=== PATIENT | female | born 1955 | race Caucasian/White ===

== ENCOUNTER 2016-04-12 00:36 | Emergency (ER) | payer MEDICARE ==
[~2016-04-12] VITALS: Ht 172.7 cm; Wt 90.0 kg
[~2016-04-12 00:36] MED LIST: AMITRIPTYLINE H75 M1 PO; AMOXICILLIN 8751 TAB PO; ASPIRIN E.C. 8181 MG PO; CELEXA 20MG20 MG/TAB PO; GLUCOPHAGE850 MG/TAB PO; MOTRIN 800800 MG/TAB PO; NORCO 325 MG-7.1 TAB PO; PRAVACHOL 40MG40 MG PO; PRINIVIL10 MG PO; TEGRETOL X200 MG/TA1 PO; TRIAMCINOLONE A15 G1 TP
[2016-04-12 00:40] VITALS: BP 127/74; PULSE 91; TEMP 97.4
[2016-04-12] MEDS ORDERED: PRAVACHOL 40MG40 MG PO (01:17)
[2016-04-12] MEDS ORDERED: CELEXA 20MG20 MG/TAB PO (01:17)
[2016-04-12] MEDS ORDERED: FISH OIL 1000MG1 CAP PO (01:17)
[2016-04-12] MEDS ORDERED: PRINIVIL10 MG PO (01:17)
[2016-04-12] MEDS ORDERED: EPITOL (01:18)
[2016-04-12] MEDS ORDERED: GLUCOPHAGE850 MG/TAB PO (01:18)
[2016-04-12] MEDS ORDERED: BUSPAR10 MG PO (01:18)
[2016-04-12] MEDS ORDERED: AMITRIPTYLINE H75 M1 PO (01:19)
== END 2016-04-12 02:10 | disposition home or self-care (01) ==
LOC: COL.ER 00:36
DX: S92.315A Nondisplaced fracture of first metatarsal bone, left foot, initial encounter for closed fracture (principal); X50.1XXA Overexertion from prolonged static or awkward postures, initial encounter; Y92.009 Unspecified place in unspecified non-institutional (private) residence as the place of occurrence of the external cause
CPT/HCPCS: L2114

== ENCOUNTER 2017-04-23 23:00 | Emergency (ER) | payer MEDICARE ==
[~2017-04-23] VITALS: Ht 172.7 cm; Wt 88.6 kg
[~2017-04-23 23:00] MED LIST changes: +BUSPAR10 MG PO; +EPITOL; +FISH OIL 1000MG1 CAP PO
[2017-04-23 23:03] VITALS: BP 150/96; TEMP 97.8
[2017-04-24] MEDS ORDERED: ASPIRIN 81M81 MG/TA2 PO (00:42)
[2017-04-24] MEDS ORDERED: PERCOCET 325 MG1 TAB PO (00:42)
[2017-04-24 00:45] VITALS: PULSE 89
== END 2017-04-24 00:46 | disposition home or self-care (01) ==
LOC: COL.ER 23:00
DX: F41.9 Anxiety disorder, unspecified (principal); Z23 Encounter for immunization; S50.811A Abrasion of right forearm, initial encounter; F31.9 Bipolar disorder, unspecified; E11.9 Type 2 diabetes mellitus without complications; F17.200 Nicotine dependence, unspecified, uncomplicated; Z79.82 Long term (current) use of aspirin; Z79.84 Long term (current) use of oral hypoglycemic drugs